=== PATIENT | female | born 1955 | race Caucasian/White ===

== ENCOUNTER 2019-09-12 07:18 | Observation (INO) | payer BC, OTHER ==
[2019-09-12] MEDS ORDERED: Albuterol/Ipratropium NEB.SOL* Albuterol 2.5 MG/Ipratropium 0.5 MG 3 ML INH ONE (08:21)
[2019-09-12] MEDS ORDERED: NS 0.9% 1000 ML** 1,000 ML IV ONE ×2 (08:21→09:34)
[2019-09-12] MEDS ORDERED: Ketorolac INJ* 30 MG/ML 1 ML VIAL IV PUSH ONE (08:21)
[2019-09-12 08:44] LABS: ABS Basophils 0.1 10^3/ul (0-0.2); ABS Eosinophils 0.1 10^3/ul (0-0.6); ABS Lymphocytes 1.9 10^3/ul (1.0-4.8); ABS Monocytes 1.3 10^3/ul (0-0.8); ABS Neutrophils 14.4 10^3/ul (1.5-7.7); Eosinophil % 0.4 %; Hematocrit 41 % (35-47); Hemoglobin 13.9 g/dL (12.0-16.0); Lymphocyte % 10.9 %; Mean Corpuscular HGB Conc 34 g/dL (31-36); Mean Corpuscular Hemoglobin 31 pg (27-31); Mean Corpuscular Volume 89 fL (80-97); Mean Platelet Volume 7.6 fL (7.4-10.4); Platelet Count 298 10^3/uL (150-450); Red Blood Count 4.56 10^6 /uL (3.70-4.87); Red Cell Distribution Width 15 % (10-15); White Blood Count 17.8 10^3/uL (3.5-10.8)
[2019-09-12 09:00] LABS: Albumin/Globulin Ratio 1.1 (1-3); BUN/Creatinine Ratio 14.5 (8-20); C Reactive Protein 213.79 mg/L (<8.01); Calcium 9.4 mg/dL (8.6-10.3); EGFR African American 93.3 (>60); EGFR Non-African American 77.1 (>60); Globulin 3.8 g/dL (2-4); Potassium 4.4 mmol/L (3.5-5.0); Total Bilirubin 0.3 mg/dL (0.2-1.0); Total Protein 7.8 g/dL (6.4-8.9)
[2019-09-12] MEDS ORDERED: Azithromycin 500 mg/250 ml NS 500 MG/250 ML BAG IVPB ONE (09:31)
[2019-09-12] MEDS ORDERED: cefTRIAXone(*) 1 GM in NS 0.9% 50 ML* 50 ML IVPB ONE (09:31)
--- NOTE | 2019-09-12 10:31 | ED ---
Respiratory - HPI Summary HPI Summary: Patient is a 64-year-old female who presents emergency department for or productive cough times one week. Associated symptoms of sore throat and sinus pressure. Patient states she currently does not see a family doctor. Past medical history of obesity and smoking remotely. Patient denies fever, chills, chest pain, chest breath, abdominal pain, vomiting or diarrhea. Symptoms are moderate in severity. No current modifying factors. - History of Current Complaint Chief Complaint: EDFluSymptoms Stated Complaint: GENERAL ILLNESS PER PT Time Seen by Provider: 09/12/19 08:10 Hx Obtained From: Patient Pain Intensity: 0 - Allergy/Home Medications Allergies/Adverse Reactions: Allergies Allergy/AdvReac Type Severity Reaction Status Date / Time No Known Allergies Allergy Verified 09/12/19 07:22 Home Medications: Home Medications NK [No Home Medications Reported] 09/12/19 [History Confirmed 09/12/19] PMH/Surg Hx/FS Hx/Imm Hx Previously Healthy: Yes Infectious Disease History: No Infectious Disease History: Denies: Traveled Outside the in Last 30 Days - Family History Known Family History: Positive: Non-Contributory - Social History Occupation: Retired Lives: With Family Alcohol Use: None Substance Use Type: Reports: None Smoking Status (MU): Former Smoker Review of Systems Constitutional: Negative Eyes: Negative ENT: Other - sinus pressure Positive: Nasal Discharge Cardiovascular: Negative Negative: Palpitations, Chest Pain Positive: Shortness Of Breath, Cough Gastrointestinal: Negative Negative: Abdominal Pain, Vomiting, Diarrhea Genitourinary: Negative Musculoskeletal: Negative Skin: Negative Positive: Headache All Other Systems Reviewed And Are Negative: Yes Physical Exam Triage Information Reviewed: Yes Vital Signs On Initial Exam: Initial Vitals Temp Pulse Resp BP Pulse Ox 98.9 F 111 20 152/93 95 09/12/19 07:20 09/12/19 07:20 09/12/19 07:20 09/12/19 07:20 09/12/19 07:20 Vital Signs Reviewed: Yes Appearance: Positive: Well-Nourished - Patient sitting on side of the bed coughing, appears to feel unwell but nontoxic. Skin: Positive: Warm, Dry Head/Face: Positive: Normal Head/Face Inspection Eyes: Positive: Normal, EOMI, POLLO Neck: Positive: Supple Respiratory/Lung Sounds: Positive: Other - Crackles in left base. Cardiovascular: Positive: Tachycardia Neurological: Positive: Normal, CN Intact II-III Psychiatric: Positive: Affect/Mood Appropriate Procedures - Sedation Patient Received Moderate/Deep Sedation with Procedure: No Diagnostics - Vital Signs Vital Signs Temp Pulse Resp BP Pulse Ox 09/12/19 09:00 111 91 09/12/19 08:00 109 94 09/12/19 07:28 111 124/84 93 09/12/19 07:27 110 92 09/12/19 07:20 98.9 F 111 20 152/93 95 - Laboratory Lab Results: Lab Results 09/12/19 09/12/19 09/12/19 Range/Units 08:30 08:30 09:58 WBC 17.8 H (3.5-10.8) 10^3/uL RBC 4.56 (3.70-4.87) 10^6 /uL Hgb 13.9 (12.0-16.0) g/dL Hct 41 (35-47) % MCV 89 (80-97) fL MCH 31 (27-31) pg MCHC 34 (31-36) g/dL RDW 15 (10-15) % Plt Count 298 (150-450) 10^3/uL MPV 7.6 (7.4-10.4) fL Neut % (Auto) 80.8 % Lymph % (Auto) 10.9 % Boyle % (Auto) 7.3 % Eos % (Auto) 0.4 % Baso % (Auto) 0.6 % Absolute Neuts (auto) 14.4 H (1.5-7.7) 10^3/ul Absolute Lymphs (auto) 1.9 (1.0-4.8) 10^3/ul Absolute Monos (auto) 1.3 H (0-0.8) 10^3/ul Absolute Eos (auto) 0.1 (0-0.6) 10^3/ul Absolute Basos (auto) 0.1 (0-0.2) 10^3/ul Absolute Nucleated RBC 0.0 10^3/ul Nucleated RBC % 0.0 Sodium 136 (135-145) mmol/L Potassium 4.4 (3.5-5.0) mmol/L Chloride 99 L (101-111) mmol/L Carbon Dioxide 30 (22-32) mmol/L Anion Gap 7 (2-11) mmol/L BUN 11 (6-24) mg/dL Creatinine 0.76 (0.51-0.95) mg/dL Est GFR ( Amer) 93.3 (>60) Est GFR (Non-Af Amer) 77.1 (>60) BUN/Creatinine Ratio 14.5 (8-20) Glucose 119 H (70-100) mg/dL Lactic Acid 1.0 (0.5-2.0) mmol/L Calcium 9.4 (8.6-10.3) mg/dL Total Bilirubin 0.30 (0.2-1.0) mg/dL AST 102 H (13-39) U/L ALT 121 H (7-52) U/L Alkaline Phosphatase 162 H (34-104) U/L C-Reactive Protein 213.79 H (<8.01) mg/L Total Protein 7.8 (6.4-8.9) g/dL Albumin 4.0 (3.2-5.2) g/dL Globulin 3.8 (2-4) g/dL Albumin/Globulin Ratio 1.1 (1-3) Result Diagrams: 09/12/19 08:30 09/12/19 08:30 Lab Statement: Any lab studies that have been ordered have been reviewed, and results considered in the medical decision making process. Disposition - Course Course Of Treatment: Patient presenting with productive cough. She is afebrile , tachycardic. Oxygen saturation low 90s on room air. Patient was started on IV fluids, toradol and duoneb. Labs show a blood cell count of 17.8, CRP 213, mildly elevated liver enzymes. Chest x-ray is negative for acute findings per radiology the clinically suspect left sided pneumonia. Patient was given a dose of IV Rocephin and azithromycin. Patient meeting sepsis criteria. Hospitalist was consulted, Dr. Leong, and they will admit patient for further care. ECG done at 1051 shows a sinus tachycardia of 100bpm, normal axis, no ST elevation or depression. - Differential Dx - Cardiopulmonary Differential Diagnoses - Cardiopulmonary: Asthma, Bronchitis, CHF, Influenza, Lower Resp Infection - Diagnoses Provider Diagnoses: Pneumonia, Sepsis Discharge ED - Sign-Out/Discharge Documenting (check all that apply): Patient Departure - Discharge Plan Condition: Stable Disposition: ADMITTED TO [facility] - Billing Disposition and Condition Condition: STABLE Disposition: Admitted to [facility] - Attestation Statements Provider Attestation: pt seen by midlevel provider independently, based on their assessment, it was not necessary to present the case to me but I was available for consultation. I did not form a physician-patient relationship with the patient. The chart however, has been reviewed. am signing this note strictly in an administrative capacity.
[2019-09-12] MEDS ORDERED: Albuterol 2.5 MG/3 ML NEB.SOL* (0.083%) INH PRN (10:48)
[2019-09-12] MEDS ORDERED: Ondansetron INJ* 2 MG/ML VIAL IV PRN (10:48)
[2019-09-12] MEDS ORDERED: Al Hydrox/Mg Hydrox/Simet LIQ* 30 ML UDC PO PRN (10:48)
[2019-09-12] MEDS ORDERED: Senna TAB 8.6 mg* TAB PO PRN (10:48)
[2019-09-12] MEDS ORDERED: Enoxaparin(*) 40 MG/0.4 ML SYR SUBCUT SCH (11:00)
--- NOTE | 2019-09-12 12:27 | HP ---
CC: Francy Antunez NP * HISTORY AND PHYSICAL: DATE OF ADMISSION: 09/12/19 ATTENDING PHYSICIAN WHILE IN THE HOSPITAL: Dr. Marilynn Leong * (dictated by CHUY Gottlieb). PRIMARY CARE PROVIDER: Francy Antunez NP CHIEF COMPLAINT: Cough, body aches. HISTORY OF PRESENT ILLNESS: Umang Heck is a 64-year-old white female without a significant past medical history, who presents to the emergency department with 4 days of productive cough, body aches, nasal congestion, and chills. The patient states that 5 days ago she had a sore throat and then the following day she started having productive cough, which has progressively gotten worse. Since yesterday, she has been having shortness of breath with exertion and today when she was showering she was becoming very short of breath. She is additionally very short of breath after having a coughing fit. She is having a productive cough, intermittent chills, body aches and additionally she has had nasal congestion during this period of time. She did mention that she has had a poor appetite for the last 2 to 3 days. She was nauseous yesterday, attempted to eat some soup and then had 6 to 7 episodes of diarrhea. Today, her nausea is resolved and she has not yet had a bowel movement. She denies abdominal pain or vomiting, dizziness, lightheadedness. She has not checked the temperature at home. She has sensation of some chest pain while coughing, but this resolves after coughing is complete. EMERGENCY DEPARTMENT COURSE: Vital signs when the patient arrived in the emergency department were temperature 98.9, pulse rate 111, respiratory rate of 20, oxygen saturation 95% on room air, blood pressure 152/93. The patient had signs of sepsis such as tachycardia and leukocytosis with a clinical suspicion for pneumonia and the hospitalists were asked to evaluate the patient for admission. PAST MEDICAL HISTORY: None. PAST SURGICAL HISTORY: 1. x2. 2. Appendectomy. HOME MEDICATIONS: None. Additionally, the patient denies taking any supplements. ALLERGIES: No known drug allergies. FAMILY HISTORY: Father of a stroke in his 80s. He had a history of coronary artery disease as well. Mother at age 79 due to stroke. SOCIAL HISTORY: The patient works at [employer]. She is and overall lives alone, but does sometimes have a live-in boyfriend who is a fork truck driver. She has 2 adult children. She quit smoking 2 years ago and smoked for approximately 40 years prior to that. She denies alcohol use, illicit drug use. REVIEW OF SYSTEMS: An 11-point review of systems was completed and all pertinent positives and negatives are above in the HPI. All other systems are negative. PHYSICAL EXAMINATION GENERAL: An overweight, well-developed, well-nourished white female, sitting in hospital bed, appearing comfortable, in no acute distress. HEENT: Eyes: PERRL. Sclerae anicteric. ENT: Mucous membranes moist. NECK: Supple. LUNGS: Rhonchi in the bilateral lower lung nevarez. No appreciable crackles or wheezing. Frequent cough. Not using accessory muscles of respiration. CARDIO: Rate is tachycardic approximately 110 beats per minute with a regular rhythm. No appreciable murmurs, rubs, or gallops. ABDOMEN: Soft, nontender, nondistended. No appreciable hepatosplenomegaly. EXTREMITIES: No clubbing, cyanosis, or edema. NEURO: The patient is alert and oriented x3. No focal deficits. Able to move all extremities. SKIN: Skin is warm, dry, and intact. DIAGNOSTIC STUDIES/LAB DATA: Chest x-ray, impression: Low lung volume. No evidence for acute finding. On my read, I do not see any focal consolidation. EKG: Sinus tachycardia at 100 beats per minute. No previous EKG for comparison. There is isolated T-wave inversion in V1 and some ST depression in V2 through V5. White blood cell count 17.8, hemoglobin 17.9, hematocrit 41, platelet count 289. Sodium 136, potassium 4.4, chloride 99, carbon dioxide 30, anion gap 7, creatinine 0.76, glucose 119, lactic acid 1.0, calcium 9.4. Total bili 0.3, AST 102, ALT 121, alk phos 162. CRP 213.79. ASSESSMENT AND PLAN: Umang Heck is a 64-year-old white female without a significant past medical history, who presents to the emergency department for productive cough, nasal congestion, body aches, and chills. The patient will be admitted OBV for: 1. Sepsis secondary to pneumonia. The patient meets clinical criteria for pneumonia. I do have concerns that this is related to influenza and I have ordered influenza A and B, which is still pending at this time. The patient received ceftriaxone and azithromycin in the emergency department and I will continue this as empiric coverage. The patient has already received 2 L of fluid bolus in the emergency department per sepsis protocol. Her lactic acid was within normal limits. Her tachycardia is sinus tachycardia, which is consistent with her illness. I do expect this to improve. If this does not improve into the day, I will likely give the patient an additional liter of fluid. I have ordered legionella and Strep pneumonia urine antigens. Given that the patient's LFTs are elevated and she had this episode of diarrhea and nausea yesterday, there is some suspicion for legionella; however, we will await for the lab results before adjusting therapy. I will order a sputum culture as well. Blood cultures were ordered and are pending. She is afebrile in the emergency department and we will continue to monitor this. 2. Nausea and diarrhea. This is resolved today. As she has had no bowel movement today, I do not believe there is any need to order stool culture, but we will continue to monitor this. 3. Transaminitis. Cause of transaminitis is unclear. It could be related to dehydration related to her illness. Could be some hypoperfusion related to dehydration due to this illness. We will continue to trend her LFTs. As previously mentioned, it does raise suspicion for legionella. 4. EKG changes. The patient does have some EKG changes. I will repeat an EKG in a few hours. I question whether this is related to lead placement. I do not have an EKG to compare and we will attempt to contact her primary care office for any prior EKGs for comparison. 5. FEN: The patient has received 2 L of fluids and we will hold off on additional fluids for now. Electrolytes within normal limits. The patient may have a regular unrestricted diet. 6. Code status: The patient is a full code. 7. DVT prophylaxis: The patient has a DVT risk score of 3. I have ordered Lovenox and ambulation. TIME SPENT: Approximately 45 minutes was spent on this admission, approximately half this time was spent at bedside evaluating the patient and discussing the plan of care. This case has been reviewed by my attending, Dr. Marilynn Leong, and she agrees with this plan of care. CHUY GOTTLIEB [id number]/[facility] #: [id number] [facility] MED[facility] CENTERYazmin
[2019-09-12] MEDS: Acetaminophen TAB* 325 MG PO PRN ×2 (12:53→16:53)
[2019-09-12] MEDS: Benzonatate CAP* 100 MG PO PRN (13:07)
[2019-09-12 13:50] LABS: Influenza A Molecular NEGATIVE (Negative); Influenza B Molecular NEGATIVE (Negative)
[2019-09-13] MEDS: Acetaminophen TAB* 325 MG PO PRN ×2 (03:27→08:13)
[2019-09-13 06:09] LABS: ABS Basophils 0.1 10^3/ul (0-0.2); ABS Eosinophils 0.1 10^3/ul (0-0.6); ABS Monocytes 0.9 10^3/ul (0-0.8); ABS Neutrophils 9.2 10^3/ul (1.5-7.7); Hematocrit 37 % (35-47); Hemoglobin 12.5 g/dL (12.0-16.0); Lymphocyte % 22.4 %; Mean Corpuscular HGB Conc 34 g/dL (31-36); Mean Corpuscular Hemoglobin 30 pg (27-31); Mean Corpuscular Volume 89 fL (80-97); Mean Platelet Volume 7.6 fL (7.4-10.4); Nucleated Red Blood Cells % 0.2; Platelet Count 302 10^3/uL (150-450); Red Blood Count 4.14 10^6 /uL (3.70-4.87); Red Cell Distribution Width 15 % (10-15); White Blood Count 13.2 10^3/uL (3.5-10.8)
[2019-09-13 06:27] LABS: Albumin 3.8 g/dL (3.2-5.2); Albumin/Globulin Ratio 1.1 (1-3); BUN/Creatinine Ratio 11.5 (8-20); Calcium 9.1 mg/dL (8.6-10.3); EGFR African American 120.3 (>60); EGFR Non-African American 99.4 (>60); Globulin 3.6 g/dL (2-4); Potassium 3.7 mmol/L (3.5-5.0); Total Bilirubin 0.4 mg/dL (0.2-1.0); Total Protein 7.4 g/dL (6.4-8.9)
[2019-09-13] MEDS ORDERED: Azithromycin TAB* 250 MG PO SCH (09:00)
[2019-09-13] MEDS ORDERED: cefTRIAXone(*) 1 GM in NS 0.9% 50 ML* 50 ML IVPB SCH (09:00)
[2019-09-13] MEDS ORDERED: Influenza VAC *QUAD* 2019-20* 0.5 ML SYRINGE IM ONE (09:00)
[2019-09-13] MEDS: Benzonatate CAP* 100 MG PO PRN (10:34)
[2019-09-13] MEDS: guaiFENesin/CODIENE 100mg/10mg 5 ML UDC PO PRN ×2 (12:39→16:45)
[2019-09-13] MEDS ORDERED: Lactobacillus Acidophilus* 1 TAB PO SCH (13:00)
[2019-09-13] MEDS ORDERED: Enoxaparin(*) 40 MG/0.4 ML SYR SUBCUT SCH (17:00)
[2019-09-13 18:04] VITALS: BP 148/72
--- NOTE | 2019-09-13 21:08 | DS ---
CC: Francy Antunez NP * DISCHARGE SUMMARY: DATE OF ADMISSION: 09/12/19 DATE OF DISCHARGE: 09/13/19 PROVIDER: CHUY Gottlieb ATTENDING PHYSICIAN WHILE IN THE HOSPITAL: Dr. Doreen Qunitero * (dictated by CHUY Gottlieb). PRIMARY CARE PROVIDER: Francy Antunez NP. PRIMARY DIAGNOSES: 1. Sepsis secondary to pneumonia, signs of sepsis resolved. 2. Nausea, diarrhea, likely related to viral gastroenteritis, resolving. SECONDARY DIAGNOSIS: None. PERTINENT LAB DATA: Negative influenza A and B. Negative legionella urine antigen. Negative Streptococcus pneumoniae antigen. White blood cell count downtrended from 17.8 to 13.2. Blood culture no growth to date. HISTORY OF PRESENT ILLNESS/HOSPITAL COURSE: Umang Heck is a 64-year-old white female without a significant past medical history, who presented to the emergency department on 09/13/19 with cough and body aches. For further details regarding her admission, please see history and physical read by myself. In brief, the patient was found to have pneumonia, though there were no findings yet on chest x-ray, but she fit the clinical picture quite evidently. She was treated empirically with ceftriaxone and azithromycin. She was given symptomatic treatment with Tessalon Perles as well as guaifenesin cough syrup with codeine, the latter of which had much good effect. The patient was feeling greatly improved. On the date of discharge, her signs of sepsis had resolved. She was not hypoxic with ambulation. She was still feeling quite fatigued, but denied chest pain, difficulty breathing, symptomatic fever or chills, abdominal pain, nausea or vomiting. She did have an episode of loose stool, which at this point is likely attributable to now being on antibiotics. On the day of discharge, the patient was not hypoxic when ambulating or at rest. PHYSICAL EXAMINATION: General: White female, lying in hospital chair, appearing comfortable, in no acute distress, nontoxic appearing. ENT: Mucous membranes are moist. Lungs: Clear to auscultation throughout. Cardio: Regular rate and rhythm without murmurs, rubs, or gallops. Abdomen: Soft, nontender, nondistended. Extremities: No clubbing, cyanosis, or edema. Neuro: Normal gait. The patient is alert and oriented x3. DISCHARGE PLAN: Diet: Regular, unrestricted diet. Activity: The patient advised to rest for the next 2 to 3 days and may return to her regular activity as tolerated. The patient was provided with a work excuse and may return to work on 09/17/19. If the patient continues to have diarrhea past her use of antibiotics, she needs to follow up with her primary care provider regarding this. Additionally , she should be following up with her primary care provider regardless in 7 to 10 days regarding this hospitalization. The patient is advised to return to the emergency department if she is experiencing shortness of breath, fever or chills, chest pain, dizziness, lightheadedness, loss of consciousness, vomiting to the point of not being able to keep down fluids. We have requested a probiotic while using an antibiotic and I advised her to separate these by several hours. She was advised to complete the entire prescription of her antibiotic. DISCHARGE MEDICATIONS: New Medications: 1. Guaifenesin/codeine 5 mL p.o. q.4 hours p.r.n. cough. 2. Lactobacillus acidophilus 1 tab p.o. daily. 3. Cefdinir 300 mg p.o. b.i.d. x11 doses. 4. Tessalon Perles 100 mg p.o. b.i.d. p.r.n. cough. 5. Azithromycin 250 mg p.o. daily x3 doses. 6. Tylenol 650 mg p.o. q.4 hours p.r.n. pain/body aches. Continued home medications: Not applicable. CONDITION ON DISCHARGE: Improved. DISPOSITION: Home. TIME SPENT: Approximately 45 minutes were spent on this discharge, approximately half that time was spent at bedside evaluating the patient, discussing the plan of care. CHUY GOTTLIEB [id number]/[facility] #: [id number] AURELIA
== END 2019-09-13 17:00 | disposition home or self-care (01) ==
LOC: ED 07:18 → MED 10:48
PROVIDERS: ADMIT Hospitalist; ATTEND Internal Medicine
DX: A41.9 Sepsis, unspecified organism (principal); J18.9 Pneumonia, unspecified organism; R11.2 Nausea with vomiting, unspecified; Z79.899 Other long term (current) drug therapy; Z23 Encounter for immunization; Z87.891 Personal history of nicotine dependence
CPT/HCPCS: 36415; 71046; 80053; 83605; 85025; 86140; 87040; 87070; 87205; 87899; 90471; 90686; 93005; 96361; 96365; 96372; 96375; 99284; A9270-GY; G0008; G0378; J0456; J0696; J1650; J1885